=== PATIENT | female | born 1955 | race Hispanic/Latino ===

== ENCOUNTER → 2022-12-12 | Outpatient (CLI) | payer OTHER | END | disposition home or self-care (01) | LOC: OIH 09:06 | PROVIDERS: ATTEND Internal Medicine | DX: Z13.6 Encounter for screening for cardiovascular disorders (principal); K76.0 Fatty (change of) liver, not elsewhere classified | CPT/HCPCS: 75571 ==

== ENCOUNTER → 2025-03-26 | Outpatient (CLI) | payer OTHER ==
[2025-03-26 21:50] VITALS: PULSE 65; RESP 20
[2025-03-26 22:28] VITALS: PULSE 64; RESP 14
[2025-03-26 23:00] VITALS: PULSE 69; RESP 18
[2025-03-26 23:31] VITALS: PULSE 62; RESP 12
[2025-03-27] VITALS (10 sets, daily range): PULSE 57–78; RESP 10–18
== END | disposition home or self-care (01) ==
LOC: SLP 20:00
PROVIDERS: ATTEND Internal Medicine
DX: G47.33 Obstructive sleep apnea (adult) (pediatric) (principal); R06.83 Snoring; R53.83 Other fatigue; I10 Essential (primary) hypertension; E11.9 Type 2 diabetes mellitus without complications; R45.1 Restlessness and agitation; M54.9 Dorsalgia, unspecified; R35.0 Frequency of micturition
CPT/HCPCS: 95810

== ENCOUNTER → 2025-07-10 | Outpatient (CLI) | payer OTHER ==
[2025-07-10 22:39] VITALS: PULSE 54; RESP 17
[2025-07-10 23:00] VITALS: PULSE 47; RESP 14
[2025-07-10 23:30] VITALS: PULSE 57; RESP 16
[2025-07-10 23:58] VITALS: PULSE 61; RESP 16
[2025-07-11] VITALS (10 sets, daily range): PULSE 46–69; RESP 11–14
== END | disposition home or self-care (01) ==
LOC: CANPRECLI → SLP 20:24
PROVIDERS: ATTEND Internal Medicine
DX: G47.33 Obstructive sleep apnea (adult) (pediatric) (principal); R06.83 Snoring; R53.83 Other fatigue
CPT/HCPCS: 95811